=== PATIENT | male | born 1980 | race Caucasian/White ===

== ENCOUNTER → 2021-10-27 | Outpatient (CLI) | payer BC ==
--- NOTE | 2021-10-28 12:59 | RESP ---
DATE OF SERVICE: 10/27/2021 PULMONARY FUNCTION TESTING REFERRING PHYSICIAN: Dr. Royce Candelaria. The patient's FVC was 5.15, which is 95% predicted. FEV1 4.35, which is 102% predicted. The FEV1/FVC ratio was normal. No bronchodilators were given. Lung volumes were not performed. Diffusion capacity was 83% predicted. IMPRESSION: 1. Spirometry findings do not suggest any obstructive airway disease. 2. No bronchodilators given. 3. Normal diffusion capacity. CHANCE DR: Brent TID: [id number]
--- NOTE | 2021-10-28 13:00 | RESP ---
DATE OF SERVICE: 10/27/2021 PULMONARY FUNCTION TEST SIX-MINUTE WALK TEST: The patient was ambulated for 6 minutes. There was no significant desaturation during 6-minute walk. IMPRESSION: Normal 6-minute walk test. CHANCE DR: Brent TID: [id number]
== END ==
LOC: PF 11:07
PROVIDERS: ATTEND Internal Medicine Pulmonary Disease
DX: J12.82 Pneumonia due to coronavirus disease 2019 (principal)
CPT/HCPCS: 94618; 94729